=== PATIENT | male | born 1955 | race Caucasian/White ===

== ENCOUNTER 2022-08-10 21:56 | Emergency (ER) | payer MEDICARE, BC ==
[2022-08-10] MEDS ORDERED: Ibuprofen 600 MG Tab PO ONE (23:10)
== END 2022-08-10 23:17 | disposition home or self-care (01) ==
LOC: FB.ED 21:56
DX: S05.01XA Injury of conjunctiva and corneal abrasion without foreign body, right eye, initial encounter (principal); Z88.0 Allergy status to penicillin
CPT/HCPCS: 99282; 99283; A9270-GY